=== PATIENT | female | born 1980 | race Caucasian/White ===

== ENCOUNTER 2021-12-09 11:39 | Emergency (ER) | payer OTHER ==
[~2021-12-09] VITALS: Ht 175.3 cm; Wt 63.5 kg
--- NOTE | 2021-12-09 11:53 | NUR ---
[id number], ACTING BIZAARE, NOT TALKING APPROPRIATELY. PLACED ON BED, AWAKE ALERT COOPERATIVE RESPONDING TO QUESTIONS, BREATHING EVEN AND UNLABORED.
--- NOTE | 2021-12-09 12:30 | NUR ---
Lunch provided ate 100%
--- NOTE | 2021-12-09 14:20 | NUR ---
Re-Evaluated by Dr Calvo. Pt For discharge Patient discharged to previous living condition in stable condition Refusing Placement at this time. Homeless resources given. Written and verbal after care instructions given. Patient verbalizes understanding of instruction.
[2021-12-09 14:30] VITALS: BP 118/75
== END 2021-12-09 14:31 | disposition home or self-care (01) ==
LOC: ER 11:40
DX: R46.1 Bizarre personal appearance (principal); Z59.00 Homelessness unspecified